=== PATIENT | male | born 1955 | race Caucasian/White ===

== ENCOUNTER 2022-07-09 11:15 | Day surgery (SDC) | payer OTHER ==
[~2022-07-09] VITALS: Ht 172.7 cm; Wt 72.6 kg
[~2022-07-09 11:15] MED LIST: RESTORIL30 MG PO; SEROQUE
== END 2022-07-09 16:50 | disposition home or self-care (01) ==
LOC: CIR.AMB 11:15
PROVIDERS: ATTEND Colon & Rectal Surgery
DX: K80.20 Calculus of gallbladder without cholecystitis without obstruction (principal); Z53.09 Procedure and treatment not carried out because of other contraindication; Z87.891 Personal history of nicotine dependence; B19.20 Unspecified viral hepatitis C without hepatic coma; F14.21 Cocaine dependence, in remission

== ENCOUNTER 2022-07-23 06:15 | Day surgery (SDC) | payer OTHER | END 2022-07-23 11:30 | disposition home or self-care (01) | LOC: CIR.AMB 06:15 | PROVIDERS: ATTEND Colon & Rectal Surgery | DX: R15.9 Full incontinence of feces (principal); R32 Unspecified urinary incontinence; Z20.822 Contact with and (suspected) exposure to COVID-19 | CPT/HCPCS: 64590; 95971; C1767 ==

== ENCOUNTER 2022-10-31 07:44 | Day surgery (SDC) | payer OTHER | END 2022-10-31 13:25 | disposition home or self-care (01) | LOC: AMB-ENDOS 07:44 | PROVIDERS: ATTEND Colon & Rectal Surgery | DX: R15.9 Full incontinence of feces (principal); Z20.822 Contact with and (suspected) exposure to COVID-19 ==

== ENCOUNTER 2023-01-25 13:39 | Outpatient (CLI) | payer OTHER | END 2023-01-25 13:53 | disposition home or self-care (01) | LOC: LAB 13:39 | PROVIDERS: ATTEND Colon & Rectal Surgery | DX: Z01.812 Encounter for preprocedural laboratory examination (principal); R15.9 Full incontinence of feces; Z12.12 Encounter for screening for malignant neoplasm of rectum; Z12.11 Encounter for screening for malignant neoplasm of colon ==

== ENCOUNTER 2023-01-30 07:00 | Day surgery (SDC) | payer OTHER | END 2023-01-30 11:50 | disposition home or self-care (01) | LOC: AMB-ENDOS 07:00 | PROVIDERS: ATTEND Colon & Rectal Surgery | DX: K57.30 Diverticulosis of large intestine without perforation or abscess without bleeding (principal); R15.9 Full incontinence of feces; Z20.828 Contact with and (suspected) exposure to other viral communicable diseases ==